=== PATIENT | male | born 1960 | race Asian ===

== ENCOUNTER 2017-02-01 12:32 | Inpatient (IN) | payer BC, OTHER ==
[~2017-02-01] VITALS: Ht 170.2 cm; Wt 52.7 kg
--- NOTE | 2017-02-01 12:39 | PCM.EKG ---
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
[2017-02-01] MEDS ORDERED: DUONEB 0.5 MG-3 MG/3 ML SOLN IH ONE (12:40)
[2017-02-01] MEDS ORDERED: DECADRON ONE (12:41)
[2017-02-01] MEDS ORDERED: SOLU-MEDROL IV STA (12:41)
[2017-02-01] MEDS ORDERED: DUONEB 0.5 MG-3 MG/3 ML SOLN IH STA (12:41)
[2017-02-01] MEDS ORDERED: DECADRON IV STA (12:41)
--- NOTE | 2017-02-01 12:41 | ER.PDOC ---
General Chief Complaint: Chest Pain-Cardiac Nature Stated Complaint: CHEST PAIN Time seen by MD: 12:55 Source: patient History of Present Illness Severity: mild Activities at Onset: activity/exertion Associated Symptoms: cough, pain, wheezing Allergies: Coded Allergies: No Known Allergies (Unverified , 02/01/17) Home Meds No Active Prescriptions or Reported Meds Past Medical History Medical History: asthma Surgical History: no surgical history Social History Smoking: cigarettes, less than 1 pack/day Alcohol Use: none Drug Use: none Review of Systems All Other Systems: Reviewed and Negative Physical Exam General Appearance: No Apparent Distress, WD/WN HEENT: PERRL/EOMI, Normal ENT Inspection, TMs Normal, Pharynx Normal Neck: Non-Tender, Full Range of Motion, Supple, Normal Inspection Respiratory: rhonchi Gastrointestinal: Normal Bowel Sounds, No Organomegaly, No Pulsatile Mass, Non Tender, Soft Extremities: Normal Range of Motion, Non-Tender, Normal Inspection, No Pedal Edema, No Calf Tenderness, Normal Capillary Refill 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, No Motor/Sensory Deficits, Alert, Normal Mood/Affect, Oriented x 3 Skin: Normal Color, Warm/Dry Lymphatic: No Adenopathy Results/Orders Results/Orders Laboratory Tests Test 02/01/17 12:48 02/01/17 12:50 Blood Gas Sample Site RT BRACIAL ARTERY Blood Gas pH 7.343 (7.350-7.450) Blood Gas PCO2 53.7 mmHg (35.0-45.0) Blood Gas PO2 45.0 mmHg (75.0-100.0) Blood Gas HCO3 28.5 mmol/L (22.0-26.0) Blood Gas Base Excess 1.6 mmol/L (-2.0-2.0) Rafa Test N/A Arterial Blood Oxygen Saturation 79.7 % (95-) Deoxyhemoglobin 19.5 % (0.2-0.6) Carboxyhemoglobin 3.4 % (0.5-1.5) Methemoglobin 0.4 % (0.2-0.6) Total Hemoglobin 15.4 % (13.5-17.5) Total Oxygen Concentration 16.6 % (13.5-17.5) Lactic Acid (Blood Gas) 1.2 MMOL/L (0.5-1.0) Blood Gas Temperature 37 Oxygen Delivery Method (LAB) RA FiO2 21 % (20-101) Bicarbonate 30.2 mmol/L (23-27) White Blood Count 11.6 10^3/uL (4.5-11.0) Red Blood Count 6.20 10^6/uL (4.50-5.90) Hemoglobin 13.9 g/dL (13.9-16.3) Hematocrit 44.8 % (37.0-53.0) Mean Corpuscular Volume 72.3 fL (78-100) Mean Corpuscular Hemoglobin 22.4 pg (26-34) Mean Corpuscular Hemoglobin Concent 31.0 g/dL (33-37) Red Cell Distribution Width 16.7 % (11.5-14.5) Platelet Count 269 10^3/uL (150-400) Mean Platelet Volume 10.0 fL (7.8-11.0) Neutrophils (%) (Auto) 79.7 % (41.0-85.0) Lymphocytes (%) (Auto) 11.1 % (24.0-44.0) Monocytes (%) (Auto) 7.7 % (5.0-12.0) Neutrophils # (Auto) 9.2 10^3/uL (1.8-7.7) Lymphocytes # (Auto) 1.3 10^3/uL (1.0-4.8) Monocytes # (Auto) 0.9 10^3/uL (0.3-0.8) Absolute Immature Granulocyte (auto 0.02 10^3 u/L (0-2) Eosinophils % 0.8 % (0.0-5.0) Basophils % 0.5 % (0.0-0.2) Basophils # 0.1 10^3/uL (0.0-0.1) Eosinophil Count 0.1 10^3/uL (0.0-0.2) Prothrombin Time 10.1 SEC (9.8-11.9) Prothrombin Time INR (Non-Therap) 0.9 Activated Partial Thromboplast Time 32.5 SEC (24.67-30.72) D-Dimer 0.41 mg/L (0.19-0.49) Sodium Level 139 mmol/L (132-145) Potassium Level 4.1 mmol/L (3.6-5.2) Chloride Level 101.0 mmol/L (96-109) Carbon Dioxide Level 29.4 mmol/L (20.0-32) Anion Gap 12.7 Blood Urea Nitrogen 29 mg/dL (7-18) Creatinine 1.09 mg/dL (0.59-1.40) Estimated GFR () 84.4 (>/=60) BUN/Creatinine Ratio 26.0 Glucose Level 138 mg/dL (70-110) Calcium Level 8.3 mg/dL (8.4-10.5) Total Bilirubin 0.5 mg/dL (0.2-1.0) Aspartate Amino Transf (AST/SGOT) 35 U/L (0-35) Alanine Aminotransferase (ALT/SGPT) 29 U/L (12-78) Alkaline Phosphatase 118 U/L (50-136) Total Creatine Kinase 447 U/L (39-308) Creatine Kinase MB 12.9 ng/mL (0.5-3.6) Troponin I 0.03 ng/mL (0.00-0.05) Pro-B-Type Natriuretic Peptide 81 pg/mL (0-125) Total Protein 7.3 g/dL (6.4-8.2) Albumin 3.4 g/dL (3.4-5.0) Globulin 3.9 Percent Immature Gran (Cell Imm) 0.20 % (0.00-0.50) Helicobacter pylori Screen NEGATIVE (NEGATIVE) Administered Medications Medications (Trade) Dose Ordered Sig/Spencer Route PRN Reason Start Time Stop Time Status Last Admin Dose Admin Albuterol/ Ipratropium (Duoneb 0.5 Mg-3 Mg/3 ml Soln) 3 ml STAT STAT IH 02/01/17 12:41 02/01/17 12:44 DC 02/01/17 12:41 Methylprednisolone Sodium Succinate (Solu-Medrol) 250 mg STAT STAT IV 02/01/17 12:41 02/01/17 12:44 DC 02/01/17 13:17 Dexamethasone Sodium Phosphate (Decadron) 4 mg STAT STAT IH 02/01/17 12:45 02/01/17 12:46 DC 02/01/17 12:45 EKG/XRAY/CT/US EKG: NSR, no ST T wave changes XRAY: chest (EMPHYSEMA) Departure Time of Disposition: 15:00 Disposition: 51 DISCH TO HOSPICE MED FACILI Impression: Primary Impression: COPD (chronic obstructive pulmonary disease) Condition: Improved Scripts No Active Prescriptions or Reported Meds Duration or Time Spent with Pa: 2 HRS ALLEN UGALDE MD Feb 01, 2017 12:41
--- NOTE | 2017-02-01 12:41 | NUR ---
ARRIVAL PATIENT ARRIVED TO ED5 AMBULATORY WITH COWORKERS, C/O OF COUGH,CONGESTION,CHEST PAIN AND COUGHING UP BLOOD FOR THE PAST SEVERAL DAYS, PATIENT STATES HE WAS COUGHING UP CLEAR SPUTUM WITH SMALL AMOUNTS OF BLOOD, COWORKERS BROUGHT TO ED FOR FURTHER EVAL.
[2017-02-01] MEDS ORDERED: DECADRON IH STA (12:45)
[2017-02-01 12:55] LABS: ABG PCO2 53.7 mmHg (35.0-45.0); ABG PH 7.343 (7.350-7.450); BE(B) 1.6 mmol/L (-2.0-2.0); HCO3act 28.5 mmol/L (22.0-26.0)
[2017-02-01 13:01] LABS: BASOPHIL # 0.1 10^3/uL (0.0-0.1); BASOPHIL % 0.5 % (0.0-0.2); EOSINOPHIL # 0.1 10^3/uL (0.0-0.2); EOSINOPHIL % 0.8 % (0.0-5.0); HEMOGLOBIN 13.9 g/dL (13.9-16.3); LYMPHOCYTES # 1.3 10^3/uL (1.0-4.8); LYMPHOCYTES % 11.1 % (24.0-44.0); MEAN CELL HGB 22.4 pg (26-34); MEAN CORP VOLUME 72.3 fL (78-100); MONOCYTES # 0.9 10^3/uL (0.3-0.8); MONOCYTES % 7.7 % (5.0-12.0); NEUTROPHIL # 9.2 10^3/uL (1.8-7.7); NEUTROPHILS % 79.7 % (41.0-85.0); RED CELL DISTRIBUTION WIDTH 16.7 % (11.5-14.5); WHITE BLOOD CELL 11.6 10^3/uL (4.5-11.0)
[2017-02-01] MEDS ORDERED: SOLU-MEDROL ONE ×2 (13:04→13:05)
[2017-02-01 13:49] LABS: CALCIUM 8.3 mg/dL (8.4-10.5); CARBON DIOXIDE 29.4 mmol/L (20.0-32)
--- NOTE | 2017-02-01 14:20 | DIREP ---
PROCEDURE:CHEST 2 VIEWS COMPARISON:None. INDICATIONS:CAP FINDINGS: LUNGS/PLEURA:Hyperinflation with flattening of the diaphragm and diffuse interstitial thickening throughout the bilateral hemithoraces. Findings suggest underlying COPD/emphysema. No superimposed airspace consolidation, pleural effusion or pneumothorax. VASCULATURE:Normal. Unremarkable pulmonary vasculature. CARDIAC:Normal. No cardiac silhouette abnormality or cardiomegaly. MEDIASTINUM:Mediastinal contours are within normal limits. BONES:Dextro convex scoliosis of the mid to upper thoracic spine with associated degenerative disc disease. No acute abnormality. OTHER:Negative. CONCLUSION: 1. Findings suggestive of underlying COPD/emphysema. No definite superimposed acute cardiopulmonary abnormality identified. Dictated by: Mike Avelar M.D. On 02/01/2017 at 02:18 PM
--- NOTE | 2017-02-01 14:36 | NUR ---
Dr. Kat Ly on phone with Dr. Stephens
[2017-02-01] MEDS ORDERED: DUONEB 0.5 MG-3 MG/3 ML SOLN IH PRN (15:00)
[2017-02-01] MEDS ORDERED: NS 1000ML 1,000 ML IV ONE (15:00)
[2017-02-01 16:19] VITALS: BP 124/68
[2017-02-01] MEDS: LOVENOX SQ SCH (17:29)
[2017-02-01] MEDS: DUONEB 0.5 MG-3 MG/3 ML SOLN IH SCH ×2 (18:07→20:12)
[2017-02-01 20:59] VITALS: BP 115/68
--- NOTE | 2017-02-01 21:02 | HPH ---
ADMIT DATE: 02/01/2017 The patient is being placed under observation to Med-Surg. PRIMARY CARE PHYSICIAN: None. ADMITTING DIAGNOSES: 1. COPD exacerbation with hypoxia and shortness of breath. 2. Chest pain. CHIEF COMPLAINT: Hard to breathe and chest pain. HISTORY OF PRESENT ILLNESS: The patient is a 56-year-old gentleman who is visiting from [facility] and working around in the [place], [place]. He comes into the ER with worsening cough, congestion and shortness of breath and chest pain for the past few days. No fevers, no chills, no abdominal pains, no diarrhea, no constipation. He has been coughing up some blood is what is reported. No diarrhea, no constipation, no dysuria reported. PAST MEDICAL HISTORY: None. PAST SURGICAL HISTORY: None. ALLERGIES: NO KNOWN DRUG ALLERGIES. MEDICATIONS: He is on is none. SOCIAL HISTORY: He smokes less than a pack a day. No alcohol use, no illicit drug use. PHYSICAL EXAMINATION: VITAL SIGNS: When he first came in, temperature is 98.2, pulse rate 88, respirations 20, blood pressure 116/65 and O2 sats were initially 81-85% on room air. My physical exam is as follows: GENERAL: He is in no acute distress, awake and alert. HEENT: Oropharynx is clear. NECK: Supple. HEART: S1, S2 audible. LUNGS: Had expiratory rhonchi and wheezing noted bilaterally. CHEST: He is barrel chested. ABDOMEN: Good bowel sounds, soft abdomen, no rebound or guarding. EXTREMITIES: 2+ distal pulses are noted. SKIN: Warm and dry, no pitting edema noted. LABORATORY DATA: Laboratories were obtained. White count was 11,600, hemoglobin of 13.9 and platelet count of 269. Coags were normal. D-dimer is 0.41. Blood gas showed a pH of 7.34, pCO2 of 54, pO2 45, bicarbonate of 29. Chemistry panel had bicarbonate 30, glucose 138, total CK was 447, CK-MB was 12.9. Troponin was 0.03. Rest of the labs were normal. H. pylori was negative. IMAGING STUDIES: Chest x-ray showed hyperinflation with increased interstitial thickening noted. Findings were suspicious for COPD/emphysema. EKG showed sinus rhythm. ASSESSMENT: We have this gentleman with COPD exacerbation, hypoxia and breathing difficulties with chest pain. I will go ahead and draw some serial cardiac enzymes on him and start him on DuoNeb treatments, Solu-Medrol, and follow him clinically overnight. Mariaelena Stephens MD DR: MILO/minnie JOB# [id number]
[2017-02-01] MEDS: SOLU-MEDROL IV SCH (22:05)
--- NOTE | 2017-02-01 22:34 | NUR ---
Patient resting in bed with eyes closed. Resp even and non labored. Nasal canula in place. No s/s of distress noted at this time. Will continue to monitor. Call light within reach.
[2017-02-02] VITALS (7 sets, daily range): BP systolic 106–124; BP diastolic 68–78
--- NOTE | 2017-02-02 01:04 | NUR ---
Patient continues to rest in bed with eyes closed. Resp[ even and non labored. Nasal canula in place. No s/s of distress noted at this time. Will continue to monitor. Call light within reach.
[2017-02-02] MEDS: SOLU-MEDROL IV SCH ×3 (05:49→22:52)
--- NOTE | 2017-02-02 06:42 | NUR ---
Report Report given to Mirtha Zurita RN
--- NOTE | 2017-02-02 06:45 | NUR ---
REPORT RECEIVED FROM BECKY AGUDELO.
--- NOTE | 2017-02-02 07:15 | NUR ---
ASSESSMENT COMPLETED. PATIENT LYING IN BED. FREQUENT LOOSE COUGH NOTED. PATIENT REPORTS PAIN IN CHEST WITH COUGHING. STATES "ITS LIKE A KNIFE. 6." RESPIRATIONS SLIGHTLY LABORED. 02 ON @2L/NC. LUNG SOUNDS COARSE WITH EXPIRATORY WHEEZE. REPORTS SPUTUM IS WHITE. BREAKFAST SERVED AND EATING WITHOUT PROBLEMS. SALINE LOCK PRESENT IN LEFT WRIST. DENIES PROBLEMS VOIDING. SR UP X2. CALL LIGHT WITHIN REACH.
--- NOTE | 2017-02-02 08:30 | NUR ---
PATIENT RESTING WITH EYES CLOSED. NO DISTRESS NOTED. SR UP X2. CALL LIGHT WITHIN REACH.
[2017-02-02] MEDS: DUONEB 0.5 MG-3 MG/3 ML SOLN IH SCH ×4 (08:33→20:49)
[2017-02-02] MEDS ORDERED: LEVAQUIN 150 ML IV ONE (09:00)
--- NOTE | 2017-02-02 09:30 | NUR ---
SALINE LOCK FLUSHED AND LEVAQUIN HUNG. NEGATIVE S/S INFILTRATION NOTED. NO DISTRESS NOTED.
[2017-02-02] MEDS ORDERED: NS 250ML 250 ML IV ONE (09:43)
--- NOTE | 2017-02-02 10:30 | NUR ---
PATIENT AWAKE AND ALERT. CONTINUES TO C/O PAIN WITH COUGHING. INTERMITTENT COUGHING NOTED. DENIES CHILLS OR FEVER. PATIENT INDEPENDENT IN ROOM. DRINKING FLUIDS.
[2017-02-02] MEDS ORDERED: LANOLIN HYDROUS TP ONE (11:55)
--- NOTE | 2017-02-02 14:19 | NUR ---
PATIENT SITTING UP IN BED. REPORTS PAIN DECREASED. STATES "IT JUST A LITTLE BIT NOW. ITS BETTER." NO DISTRESS NOTED AT PRESENT. NO COUGH NOTED. IV PATENT. PATIENT DRINKING WATER.SR UP X2.CALL LIGHT WITHIN REACH.
--- NOTE | 2017-02-02 14:49 | PRM.PN ---
Subjective Subjective Date: Feb 02, 2017 Time: 14:40 Subjective Pt reports breathing better; no more CP Patient History: Patient reports no known family medical history. VTE VTE Risk Total Score: 1 VTE Risk Score VTE Risk: Score 0-1 = Low Risk (Aggressive mobilization; early ambulation; no VTE prophylaxis required) Score 2: Moderate Risk (Intermittent/Pneumatic Compression Device OR Lovenox/Heparin/Coumadin) Score 3-4: High Risk (Intermittent/Pneumatic Compression Device AND Lovenox/Heparin/Coumadin) Score > or =5: Highest Risk (Intermittent/Pneumatic Compression Device AND Lovenox/Heparin/Coumadin) Antico:Hep/LMWH/Coum/Xarelto: Yes Mechanical device ordered: Yes Review of Systems Constitutional: No: Fever, Chills, Sweats, Weakness, Malaise Eyes: No: Pain, Vision change, Conjunctivae inflammation, Eyelid inflammation ENT: No: Ear pain, Ear discharge, Nose pain, Nose discharge, Nose congestion Respiratory: Cough, Shortness of breath Cardiovascular: No: Chest Pain, Palpitations, Orthopnea, Paroxysmal Noc. Dyspnea Gastrointestinal: No: Nausea, Vomiting, Abdominal Pain Genitourinary: No Dysuria, No Frequency, No Incontinence Musculoskeletal: No: neck pain, shoulder pain, arm pain Skin: No: Jaundice, Bruising Neurological: No: Weakness, Numbness, Confusion, Seizures Allergies: Coded Allergies: No Known Allergies (Unverified , 02/01/17) No Active Prescriptions or Reported Meds Objective Vitals and I/O Vital Sign - Last 24 Hours 02/01/17 02/01/17 02/01/17 02/01/17 15:45 15:46 16:19 17:37 Temp 98.2 98.2 Pulse 82 85 Resp 20 18 18 B/P (MAP) 122/62 (82) 124/68 (86) Pulse Ox 92 98 98 O2 Delivery Nasal Cannula O2 Flow Rate 2.00 02/01/17 02/01/17 02/01/17 02/01/17 18:07 18:19 20:10 20:11 Pulse 83 85 82 82 Resp 20 20 16 16 Pulse Ox 92 93 93 93 O2 Delivery Nasal Cannula O2 Flow Rate 2.00 02/01/17 02/01/17 02/02/17 02/02/17 20:18 20:59 00:58 01:09 Temp 98.2 98.1 Pulse 88 80 64 Resp 16 18 18 B/P (MAP) 115/68 (84) 119/71 (87) Pulse Ox 94 93 92 O2 Delivery Nasal Cannula O2 Flow Rate 1.00 02/02/17 02/02/17 02/02/17 02/02/17 04:31 08:13 08:33 08:34 Temp 98.1 97.7 Pulse 73 74 81 81 Resp 18 19 18 18 B/P (MAP) 114/73 (87) 106/75 (85) Pulse Ox 96 90 91 91 O2 Delivery Nasal Canula Nasal Cannula O2 Flow Rate 2.00 FiO2 28 02/02/17 02/02/17 02/02/17 02/02/17 08:44 12:45 12:59 13:06 Temp 98.3 Pulse 88 89 92 93 Resp 18 19 18 16 B/P (MAP) 108/73 (85) Pulse Ox 90 90 93 90 O2 Delivery Nasal Canula Intake and Output 02/01/17 02/01/17 02/02/17 15:00 23:00 07:00 Intake Total 480 ml 240 ml Balance 480 ml 240 ml General: Alert, Oriented X3, No acute distress HEENT: Atraumatic, Mucous membr. moist/pink Neck: Supple, No JVD, No LAD Lungs: Other (exp rhonchi B) Heart: Regular rate, Normal S1, Normal S2 Abdomen: Normal bowel sounds, Soft Extremities: No clubbing, No cyanosis Skin: No rashes, No breakdown Neuro: Normal gait, Normal speech Psych/Mental Status: Mental status NL, Mood NL Medication Reconciliation No Active Prescriptions or Reported Meds Course Blood Pressure Systolic: 108 Blood Pressure Diastolic: 73 Blood Pressure Mean: 85 Assessment/Plan Assessment/Plan Assessment/Plan 56 yo male with COPD exacerbation, hypoxia - clinically improving - Use IS and try to wean O2 - cont steroid and neb - ambulate Problems: Patient History: Patient reports no known family medical history. LIBAN JONES MD Feb 02, 2017 14:49
--- NOTE | 2017-02-02 15:00 | NUR ---
PATIENT UP TO SHOWER. PATIENT NOTED TO BE COUGHING FREQUENTLY IN THE SHOWER. INSTRUCTED RE: PULLING RED STRING IN CASE OF DISTRESS. LINENS CHANGED. PATIENT BACK TO BED WITHOUT PROBLEMS.
[2017-02-02] MEDS: LOVENOX SQ SCH (17:45)
--- NOTE | 2017-02-02 17:45 | NUR ---
PATIENT SITTING UP IN BED EATING NOODLES. NO DISTRESS NOTED.
--- NOTE | 2017-02-02 18:39 | NUR ---
PATIENT SITTING ON EDGE OF BED. DENIES COMPLAINTS AT PRESENT. NO DISTRESS NOTED. SR UP X2. CALL LIGHT WITHIN REACH.
--- NOTE | 2017-02-02 18:57 | NUR ---
REPORT GIVEN TO BECKY AGUDELO.
--- NOTE | 2017-02-02 19:06 | NUR ---
Report Received report from Mirtha Zurita RN
--- NOTE | 2017-02-03 00:15 | NUR ---
Patient resting in bed with eyes closed. Resp even and non labored. Nasal canula in place. No s/s of distress noted at this itme. WIll continue to monitor. Call light within reach.
--- NOTE | 2017-02-03 03:56 | NUR ---
Patient resting in bed with eyes closed. Resp even and non labored. Nasal canula in place. No s/s of distress noted at this time. Will continue to monitor . Call light within reach.
--- NOTE | 2017-02-03 06:40 | NUR ---
Report Report given to Yas Culver LVN
[2017-02-03] MEDS: SOLU-MEDROL IV SCH ×2 (06:48→14:38)
[2017-02-03 07:12] VITALS: BP 128/85
[2017-02-03] MEDS: DUONEB 0.5 MG-3 MG/3 ML SOLN IH SCH ×3 (08:57→17:44)
--- NOTE | 2017-02-03 10:03 | NUR ---
STATUS PATIENT RESTING IN BED WITH EYES CLOSED. NO S/S OF DISTRESS. CALL LIGHT IN REACH. BED IS LOW AND LOCKED. WILL CONTINUE TO MONITOR.
[2017-02-03 13:22] VITALS: BP 115/76
--- NOTE | 2017-02-03 13:53 | NUR ---
PATIENTS O2 DECREASED TO 0.5L NASAL CANNULA AT THIS TIME. WILL CONTINUE TO MONITOR.
[2017-02-03 17:44] VITALS: BP 139/88
[2017-02-03] MEDS ORDERED: ALBU18HF IH (18:09)
[2017-02-03] MEDS ORDERED: PRED20TA PO (18:09)
--- NOTE | 2017-02-03 19:00 | DSH ---
DATE OF DISCHARGE: 02/03/2017 ADMITTING DIAGNOSES: Chronic obstructive pulmonary disease exacerbation with hypoxia, shortness of breath, and chest pain. DISCHARGE DIAGNOSES: Chronic obstructive pulmonary disease. HOSPITAL COURSE: The patient is a 56-year-old [place] gentleman, who is here working. He came in with increasing shortness of breath and a workup revealed he had a COPD exacerbation. He does not have any diagnosis and did not know that he had COPD, but a chest x-ray was highly suggestive of chronic interstitial scarring with a COPD picture. He is a smoker. He was counseled on smoking cessation and I started him on IV Solu-Medrol with DuoNeb treatments and oxygen. His O2 sats do drop down below 88%, however with deep breaths, his O2 sats picks up to about 92%. He is feeling a lot better today, we have him off oxygen, and is using his incentive spirometer and flutter valve with his breathing treatments, and he has improved. DISCHARGE DISPOSITION: At this time he feels good and would like to go home, and I will send him home on a regular diet and activity as tolerated, no strenuous activity. I have asked him to use his incentive spirometer frequently at home. I am going to put him on prednisone 40 mg a day for 4 more days and a Ventolin inhaler to use as needed. And I have asked him to find a PCP to follow up with for his COPD. Mariaelena Stephens MD DR: MILO/minnie JOB# [id number]
[2017-02-03 19:01] VITALS: BP 139/88
== END 2017-02-03 19:00 | disposition home or self-care (01) | DRG 189 ==
LOC: ER 12:32 → MS 14:54
PROVIDERS: ADMIT Pediatrics; ATTEND Pediatrics
DX: J96.20 Acute and chronic respiratory failure, unspecified whether with hypoxia or hypercapnia (principal); J44.1 Chronic obstructive pulmonary disease with (acute) exacerbation; F17.210 Nicotine dependence, cigarettes, uncomplicated; Z71.6 Tobacco abuse counseling
CPT/HCPCS: 36415; 71020; 80053; 82550; 82553; 82803; 83880; 84484; 85025; 85379; 85610; 85730; 86677; 87040; 93005; 94640; 94667; 96374; 99285; J1100; J1650; J1956; J2930; J7050; J7620